=== PATIENT | female | born 1970 | race Two or more races ===

== ENCOUNTER 2021-07-16 13:50 | Observation (INO) | payer SELFPAY ==
[~2021-07-16] VITALS: Ht 154.9 cm; Wt 81.8 kg
--- NOTE | 2021-07-16 14:15 | PHYS DOC ---
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 States she rates the pain a 5 out of 10 at this time. She states the pain has gotten slightly better. Patient denies abdominal pain, nausea, vomiting, fever, cough, back pain, syncope, dizziness Review of Systems: Review of Systems: Constitutional: Denies fever or chills. [] Eyes: Denies change in visual acuity. [] HENT: Denies nasal congestion or sore throat. [] Respiratory: Denies cough or shortness of breath. [] Cardiovascular: + chest pain or denies edema. + Palpitations [] GI: Denies abdominal pain, nausea, vomiting, bloody stools or diarrhea. [] : Denies dysuria. [] Musculoskeletal: Denies back pain or joint pain. + Left arm pain [] Integument: Denies rash. [] Neurologic: Denies headache, focal weakness or sensory changes. +Diaphoresis [] Endocrine: Denies polyuria or polydipsia. [] Lymphatic: Denies swollen glands. [] Psychiatric: Denies depression or anxiety. [] Heart Score: C/O Chest Pain: Yes HEART Score for Chest Pain: HEART Score for Chest Pain Response (Comments) Value History Slighlty/Non-Suspicious 0 ECG Normal 0 Age >45 - < 65 1 Risk Factors 1 or 2 Risk Factors 1 Troponin < Normal Limit 0 Total 2 Risk Factors: Risk Factors: DM, Current or recent (<one month) smoker, HTN, HLP, family history of CAD, obesity. Risk Scores: Score 0 - 3: 2.5% MACE over next 6 weeks - Discharge Home Score 4 - 6: 20.3% MACE over next 6 weeks - Admit for Clinical Observation Score 7 - 10: 72.7% MACE over next 6 weeks - Early Invasive Strategies Physical Exam: PE: Constitutional: Well developed, well nourished, no acute distress, non-toxic appearance. [] HENT: Normocephalic, atraumatic, bilateral external ears normal, oropharynx moist, no oral exudates, nose normal. [] Eyes: PERRLA, EOMI, conjunctiva normal, no discharge. [] Neck: Normal range of motion, no tenderness, supple, no stridor. [] Cardiovascular:Heart rate regular rhythm, no murmur [] Lungs & Thorax: Bilateral breath sounds clear to auscultation [] Abdomen: Bowel sounds normal, soft, no tenderness, no masses, no pulsatile masses. [] Skin: Warm, dry, no erythema, no rash. [] Back: No tenderness, no CVA tenderness. [] Extremities: No tenderness, no cyanosis, no clubbing, ROM intact, no edema. [] Neurologic: Alert and oriented X 3, normal motor function, normal sensory function, no focal deficits noted. [] Psychologic: Affect normal, judgement normal, mood normal. [] Normal physical exam EKG: EK and read by Dr. Irvin as a sinus rhythm and no STEMI Radiology/Procedures: Radiology/Procedures: [] Impression: [facility] [address] [place], [place] [id number] IMAGING REPORT Signed PATIENT: BRISA MOTA ACCOUNT: [id number] : 1970 LOCATION: ER AGE: 50 SEX: F EXAM STATUS: REG ER ORD. PHYSICIAN: SHANNAN COLEY APRN REASON: chest pain PROCEDURE: PORTABLE CHEST 1V EXAM: Chest, single view. HISTORY: Chest pain. COMPARISON: None. FINDINGS: A frontal view of the chest is obtained. There is no infiltrate, pleural effusion or pneumothorax. The heart is normal in size. IMPRESSION: No acute pulmonary finding. Electronically signed by: Rosmery Freeman MD (07/16/2021 2:37 PM) [id number] DICTATED and SIGNED BY: ROSMERY FREEMAN MD DATE: 07/16/21 1437 Course & Med Decision Making: Course & Med Decision Making Pertinent Labs and Imaging studies reviewed. (See chart for details) See HPI. Alert and oriented x4. Ambulatory steady gait. Speaks in full clear sentences. Chest pain cannot be reproduced. Lungs are clear to all stational lobes. No extremity swelling. Skin pink warm and dry. Radial pulses strong present. Cap refill less than 2 seconds. EKG shows a sinus rhythm and no STEMI. Patient states that she is going through 2 pads an hour. Patient's hemoglobin is low at 7.2. When looking back she has always been sli ghtly anemic but not this anemic. She is currently on her menstrual cycle. She states she has very heavy menstrual cycle. She states that this is her second day of her current menstrual cycle. Potassium is low at 3.1 and I have given her 40MEQ potassium by mouth. Patient admitted to hospitalist and Dr. Mansfield will be consulted. [] Bebo Disclaimer: Dragon Disclaimer: This electronic medical record was generated, in whole or in part, using a voice recognition dictation system. Departure Departure Impression: Primary Impression: Dysfunctional uterine bleeding Additional Impressions: Low hemoglobin Urinary tract infection Chest pain Disposition: ADMITTED INPATIENT Admitting Physician: BELKYS Condition: STABLE Referrals: NON,STAFF (PCP) SHANNAN COLEY APRN Jul 16, 2021 14:15
[2021-07-16 14:28] LABS: BASO # 0.1 x10^3/uL (0.0-0.2); BASO % 1 % (0-3); EOS # 0.2 x10^3/uL (0.0-0.7); EOS % 3 % (0-3); HEMATOCRIT 24.9 % (36.0-47.0); HEMOGLOBIN 7.2 g/dL (12.0-15.5); LYMPH # 1.9 x10^3/uL (1.0-4.8); LYMPH % 29 % (24-48); MEAN CORPUSCULAR HEMOGLOBIN 18 pg (25-35); MEAN CORPUSCULAR HGB CONC 29 g/dL (31-37); MEAN CORPUSCULAR VOLUME 63 fL (79-100); MONO # 0.5 x10^3/uL (0.0-1.1); MONO % 8 % (0-9); NEUT # 3.8 x10^3/uL (1.8-7.7); NEUT % 59 % (31-73); PLATELET COUNT 338 x10^3/uL (140-400); RED BLOOD COUNT 3.95 x10^6/uL (3.50-5.40); RED CELL DISTRIBUTION WIDTH 18.6 % (11.5-14.5); WHITE BLOOD COUNT 6.4 x10^3/uL (4.0-11.0)
[2021-07-16] MEDS ORDERED: ASPIRIN 325 MG TABLET PO ONE (14:30)
[2021-07-16 14:38] LABS: CALCIUM 8.4 mg/dL (8.5-10.1); CREATININE 0.6 mg/dL (0.6-1.0); GFR 105.8; POTASSIUM 3.1 mmol/L (3.5-5.1)
--- NOTE | 2021-07-16 14:40 | RAD ---
EXAM: Chest, single view. HISTORY: Chest pain. COMPARISON: None. FINDINGS: A frontal view of the chest is obtained. There is no infiltrate, pleural effusion or pneumo thorax. The heart is normal in size. IMPRESSION: No acute pulmonary finding. Electronically signed by: Rosmery Zimmerman MD (07/16/2021 2:37 PM) [id number]
[2021-07-16 14:45] LABS: ALBUMIN 3.6 g/dL (3.4-5.0); ALBUMIN/GLOBULIN RATIO 0.7 (1.0-1.7); TOTAL BILIRUBIN 0.2 mg/dL (0.2-1.0); TOTAL PROTEIN 9.1 g/dL (6.4-8.2)
[2021-07-16 14:46] LABS: BILIRUBIN,URINE NEGATIVE (NEG); CLARITY,URINE CLEAR; COLOR,URINE STRAW; NITRITE,URINE POSITIVE (NEG); PH,URINE 5.5 (<5.0-8.0); PROTEIN,URINE NEGATIVE (NEG-TRACE); UROBILINOGEN,URINE 0.2 mg/dL (0.2 mg/dL)
[2021-07-16 14:47] LABS: BACTERIA,URINE MANY /HPF (0-FEW)
[2021-07-16] MEDS ORDERED: POTASSIUM CHLORIDE 20 MEQ TABLET.ER. PO ONE (15:00)
[2021-07-16 15:24] LABS: PROTHROMBIN TIME PATIENT 13.1 SEC (11.7-14.0)
[2021-07-16] MEDS ORDERED: cefTRIAXone IV Push 1 GM VIAL. IVP ONE (15:30)
--- NOTE | 2021-07-16 15:51 | RAD ---
EXAM: Pelvic sonogram. HISTORY: Heavy vaginal bleeding. TECHNIQUE: Transabdominal and transvaginal sonographic imaging of the pelvis was performed. COMPARISON: None. FINDINGS: The uterus measures 7.8 x 5.4 x 4.8 cm. The endometrial stripe measures 1. There is fluid w ithin the endometrial cavity. There is a solid-appearing mass projecting into the central fluid measu ring 7 mm. The right ovary is obscured due to bowel gas. No right adnexal mass or cyst is seen. The l eft ovary is normal in size and demonstrate normal blood flow. There is no pelvic free fluid. There i s a nabothian cyst within the cervix. IMPRESSION: 1. The endometrial cavity, likely due to blood products given history of reported heavy vaginal bleed ing. There is a 7 mm solid echogenic lesion projecting into the endometrial fluid, the appearance of which favors a polyp. This can be further assessed with hysteroscopy. 2. Obscured right ovary and normal left ovary. Electronically signed by: Rosmery Zimmerman MD (07/16/2021 3:49 PM) [id number]
--- NOTE | 2021-07-16 16:14 | EKG ---
[facility] [address] [place] [address] Test Date: 2021-07-16 Test Time: 14:43:33 Pat Name: BRISA MOTA Department: Room: Gender: F Header Operator: : 1970 Requested By: SHANNAN COLEY Order Number: [id number] Reading MD: Sidney Henry Measurements Intervals [place] Rate: 73 P: 27 [place]: 176 QRS: 25 QRSD: 88 T: 10 QT: 384 QTc: 427 Interpretive Statements SINUS RHYTHM NON SPECIFIC T WAVE CHANGES RI6.02 Compared to ECG 07/16/2021 14:02:46 No significant changes Electronically Signed On 07-19-2021 15:21:14 CDT by Sidney Henry
--- NOTE | 2021-07-16 16:14 | EKG ---
[facility] [address] [place] [address] Test Date: 2021-07-16 Test Time: 14:02:46 Pat Name: BRISA MOTA Department: Room: Gender: F Tech Writer: : 1970 Requested By: SHANNAN COLEY Order Number: [id number] Reading MD: Measurements Intervals [place] Rate: 75 P: 24 CT: 172 QRS: 19 QRSD: 86 T: 9 QT: 378 QTc: 425 Interpretive Statements SINUS RHYTHM NORMAL ECG RI6.02 No previous ECG available for comparison
[2021-07-16] MEDS ORDERED: cefTRIAXone IV Push 1 GM VIAL. IVP SCH (17:00)
--- NOTE | 2021-07-16 17:17 | HP ---
DATE OF SERVICE: 07/16/2021 ADMIT DATE: 07/16/2021 CHIEF COMPLAINT: Vaginal bleeding and chest pain. HISTORY OF PRESENT ILLNESS: The patient is a pleasant 50-year-old female who presents to the ER with the above chief complaints. Basically, she has been having a lot of dysfunctional uterine bleeding for quite some time. Now, she has developed chest pain. Her hemoglobin is down to 7.2. I discussed the case with ER physician. We are going to admit the patient and consult TRANSPORTATION SUPERINTENDENT and transfuse the patient. PAST MEDICAL HISTORY: Dysfunctional uterine bleeding, chronic anemia. ALLERGIES: None. FAMILY HISTORY: Diabetes. 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 She does not drink, smoke or take drugs. MEDICATIONS: Reviewed, please refer to the MRAD. REVIEW OF SYSTEMS: GENERAL: No history of weight change, weakness or fevers. SKIN: No bruising, hair changes or rashes. EYES: No blurred, double or loss of vision. NOSE AND THROAT: No history of nosebleeds, hoarseness or sore throat. HEART: She complains of chest pain. LUNGS: Denies cough, hemoptysis, wheezing or shortness of breath. GASTROINTESTINAL: Denies changes in appetite, nausea, vomiting, diarrhea or constipation. GENITOURINARY: No history of frequency, urgency, hesitancy or nocturia. NEUROLOGIC: Denies history of numbness, tingling, tremor or weakness. PSYCHIATRIC: No history of panic, anxiety or depression. ENDOCRINE: No history of heat or cold intolerance, polyuria or polydipsia. EXTREMITIES: Denies muscle weakness, joint pain, pain on walking or stiffness. PHYSICAL EXAMINATION: VITALS: Within normal limits and are stable. GENERAL: No apparent distress. Alert and oriented. HEENT: Normal cephalic atraumatic, external auditory canals are patent. EYES: Extraocular muscles are intact, pupils are equally round and reactive to light and accommodation. MUSCULOSKELETAL: Well developed, well nourished, good range of motion. ENDOCRINE: No thyromegaly was palpated, LYMPHATICS: No cervical chain or axillary nodes were noted. HEMATOPOIETIC: No bruising. NECK: Supple, no JVD, no thyromegaly was noted. LUNGS: Clear to auscultation in all lung francois without rhonchi or wheezing. HEART: RRR, S1, S2 present. Peripheral pulses intact, no obvious murmurs were noted. ABDOMEN: Soft, nontender. Positive bowel sounds no organomegaly, normal bowel sounds. EXTREMITIES: Without any cyanosis, clubbing, or edema. Pedal pulses intact, Homans sign is negative. NEUROLOGIC: Normal speech, normal tone. A and O x 3, moves all extremities, no obvious focal deficits. PSYCHIATRIC: Normal affect, normal mood. Stable. SKIN: No ulcerations or rashes, good skin turgor, no jaundice. VASCULAR: Good capillary refill, neurovascular bundle appears to be intact. GENITOURINARY: She complains of dysfunctional uterine bleeding. LABORATORY DATA: Hemoglobin 7.2. INR is 1. Electrolytes are normal other than a potassium of 3.1, total iron binding capacity 472. Iron level 10. ASSESSMENT AND PLAN: Dysfunctional uterine bleeding with severe anemia and secondary chest pain, hypokalemia and iron deficiency. The patient will be admitted. We will replace her potassium. Give her iron supplementation. Consult TRANSPORTATION SUPERINTENDENT and transfuse 2 units of packed red blood cells. Home meds. Deep venous thrombosis prophylaxis. Full code. She does have positive nitrites and a few white cells in her urine. We will go ahead and give her some empiric IV antibiotics. MACIEJ/MARGOT DR: MACIEJ/chayo TID: [id number]
[2021-07-16 19:04] VITALS: BP 132/65
[2021-07-16 21:30] LABS: ANISOCYTOSIS SLIGHT; HYPOCHROMIA MARKED; MICROCYTOSIS MARKED; OVALOCYTES FEW; PLT ESTIMATE ADEQUATE (ADEQUATE)
[2021-07-16 21:48] VITALS: BP 111/56
--- NOTE | 2021-07-16 22:00 | NUR ---
The patient, BRISA MOTA, 50 y/o, F admitted by [place] MONTEJO III, DO, was given written information regarding hospital policies, unit procedures and contact persons. valuables were checked and documented. pt a/ox4, assessment and history completed and documented. pt oriented to unit and poc, pt verbalized understanding. will cont to monitor pt status and safety. p
[2021-07-16 22:13] VITALS: BP 116/59
[2021-07-16 22:30] VITALS: BP 114/62
[2021-07-17] VITALS (9 sets, daily range): BP systolic 111–130; BP diastolic 56–73
[2021-07-17 04:54] LABS: HEMOGLOBIN 9.2 g/dL (12.0-15.5); RED BLOOD COUNT 4.45 x10^6/uL (3.50-5.40); RED CELL DISTRIBUTION WIDTH 22.9 % (11.5-14.5); WHITE BLOOD COUNT 6.3 x10^3/uL (4.0-11.0)
[2021-07-17] MEDS ORDERED: FLU VACC QUAD 21-22 (6MOS+) PF 0.5 ML SYRINGE. VAX IM ONE (09:00)
[2021-07-17] MEDS ORDERED: AMOX1TAB10 PO (10:04)
[2021-07-17] MEDS ORDERED: FERR240T11 PO (10:04)
[2021-07-17] MEDS ORDERED: OXYC-325 PO (10:32)
[2021-07-17] MEDS ORDERED: CYCL10TA19 PO (10:32)
--- NOTE | 2021-07-17 11:04 | NUR ---
SS following for discharge planning. SS reviewed pt chart and discussed with pt RN. Pt is from home with spouse and is currently on room air. Discharge order on the chart for home with self care.
--- NOTE | 2021-07-17 11:20 | DS ---
DATE OF DISCHARGE: 07/17/2021 ADMITTING DIAGNOSES: 1. Severe anemia secondary to dysfunctional uterine bleeding. 2. Urinary tract infection. DISCHARGE DIAGNOSES: 1. Resolving severe anemia, status post transfusion, x 2 units. 2. Dysfunctional uterine bleeding. 3. Resolving urinary tract infection. 4. Iron deficiency. HOSPITAL COURSE: The patient is a pleasant, middle-aged female who has dysfunctional uterine bleeding. She presented with a hemoglobin of 7.2. We admitted her, I consulted CASINO ATTENDANT. We placed her on IV antibiotics for her UTI as well. Today, I saw her and examined her. She is doing great. Her hemoglobin is up to 9.2. She wants to go home. If okay with CASINO ATTENDANT, we plan to discharge. DISPOSITION: Home. ACTIVITY: As tolerated. DIET: Low sodium. MEDICATIONS: Please see the MRAD. Augmentin 500 p.o. b.i.d. and iron tablets 240 mg a day. Total time 36 minutes. MACIEJ/JERAMIE DR: Guillaume TID: [id number]
--- NOTE | 2021-07-17 13:46 | NUR ---
Discharge Note: NELLY MOTA [facility] Discharge instructions and discharge home medications reviewed with Patient and a copy given. All questions have been answered and understanding verbalized.
--- NOTE | 2021-07-17 16:17 | PDOC2 ---
CONSULT Date of Consult Date of Consult DATE: 07/17/21 TIME: 16:16 Reason for Consult Reason for Consult: Heavy VB History of Present Illness Reason for Visit: 50y who presented to the hospital with chest pain. The pt states that at work she got lightheaded and couldnt breathe. She began to have pain on the left side of her neck radiating to her chest. When she presented to the ER, she was found to have Hgb of 7.2. She was admitted for a transfusion. The pt states her period have always been about the same. She does not feel that they are exceptionally heavy. Although she does report that they have been heavier since her BTL in 1992. She has never required a transfusion for her periods until this hospitalization. She does report a lot discomfort with her periods. 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 Since her had a period Apr and the next was this current one. SH: no tob, no EtOH FH: DM, kidney dz, leukemia Current Problem List Problem List Problems Medical Problems: (1) Chest pain Status: Acute (2) Dysfunctional uterine bleeding Status: Acute (3) Low hemoglobin Status: Acute (4) Urinary tract infection Status: Acute Current Medications Current Medications Current Medications Aspirin (Deuce Aspirin) 325 mg 1X ONCE PO Last administered on 07/16/21at 14:19; Start 07/16/21 at 14:30; Stop 07/16/21 at 14:31; Status DC Potassium Chloride (Klor-Con) 40 meq 1X ONCE PO Last administered on 07/16/21at 14:57; Start 07/16/21 at 15:00; Stop 07/16/21 at 15:01; Status DC Ceftriaxone Sodium (Rocephin) 1 gm 1X ONCE IVP Last administered on 07/16/21at 15:03; Start 07/16/21 at 15:30; Stop 07/16/21 at 15:31; Status DC Ceftriaxone Sodium (Rocephin) 1 gm Q24H IVP Last administered on 07/16/21at 17:13; Start 07/16/21 at 17:00; Stop 07/17/21 at 13:48; Status DC Influenza Virus Vaccine Quadrival (Flulaval Quad Syringe) 0.5 ml ONCE ONCE VAX IM ; Start 07/17/21 at 09:00; Stop 07/17/21 at 09:02; Status DC Active Scripts Active Percocet 5-325 mg Tablet (Oxycodone HCl/Acetaminophen) 1 Each Tablet 1 Tab PO PRN TID PRN MDD 3 Tablet(s) 5 Days Cyclobenzaprine Hcl 10 Mg Tablet 1 Tab PO TID 30 Days Iron (Ferrous Gluconate) 240 Mg Tablet 1 Tab PO DAILY 30 Days Amox Tr-K Clv 500-125 Mg Tab (Amoxicillin/Potassium Clav) 1 Each Tablet 1 Tab PO BID Allergies Allergies: Coded Allergies: Sulfa (Sulfonamide Antibiotics) (Verified Allergy, Intermediate, 07/16/21) Physical Exam General: Alert, Oriented X3, Cooperative, No acute distress HEENT: PERRLA, Mucous membr. moist/pink Lungs: Clear to auscultation, Normal air movement Heart: Regular rate, Normal S1, Normal S2, No murmurs Abdomen: Normal bowel sounds, Soft, No tenderness, No hepatosplenomegaly, No masses Extremities: No clubbing, No cyanosis, No edema, Normal pulses, No tenderness/swelling Skin: No rashes, No breakdown Neuro: Normal gait, Normal speech, Normal tone, Sensation intact, Reflexes 2+ Psych/Mental Status: Mental status NL, Mood NL Vitals VITALS Vital Signs Date Time Temp Pulse Resp B/P (MAP) Pulse Ox O2 Delivery O2 Flow Rate FiO2 07/17/21 11:00 97.8 72 20 119/56 (77) 96 Room Air 97.8 Labs Labs Laboratory Tests Test 07/16/21 14:10 07/16/21 14:24 07/16/21 14:27 07/16/21 16:45 White Blood Count 6.4 x10^3/uL (4.0-11.0) Red Blood Count 3.95 x10^6/uL (3.50-5.40) Hemoglobin 7.2 g/dL (12.0-15.5) Hematocrit 24.9 % (36.0-47.0) Mean Corpuscular Volume 63 fL (79-100) Mean Corpuscular Hemoglobin 18 pg (25-35) Mean Corpuscular Hemoglobin Concent 29 g/dL (31-37) Red Cell Distribution Width 18.6 % (11.5-14.5) Platelet Count 338 x10^3/uL (140-400) Neutrophils (%) (Auto) 59 % (31-73) Lymphocytes (%) (Auto) 29 % (24-48) Monocytes (%) (Auto) 8 % (0-9) Eosinophils (%) (Auto) 3 % (0-3) Basophils (%) (Auto) 1 % (0-3) Neutrophils # (Auto) 3.8 x10^3/uL (1.8-7.7) Lymphocytes # (Auto) 1.9 x10^3/uL (1.0-4.8) Monocytes # (Auto) 0.5 x10^3/uL (0.0-1.1) Eosinophils # (Auto) 0.2 x10^3/uL (0.0-0.7) Basophils # (Auto) 0.1 x10^3/uL (0.0-0.2) Platelet Estimate Adequate (ADEQUATE) Hypochromasia Marked Basophilic Stippling Present Anisocytosis Slight Microcytosis Marked Ovalocytes Few Prothrombin Time 13.1 SEC (11.7-14.0) Prothromb Time International Ratio 1.0 (0.8-1.1) Activated Partial Thromboplast Time 30 SEC (24-38) Sodium Level 139 mmol/L (136-145) Potassium Level 3.1 mmol/L (3.5-5.1) Chloride Level 105 mmol/L (98-107) Carbon Dioxide Level 24 mmol/L (21-32) Anion Gap 10 (6-14) Blood Urea Nitrogen 7 mg/dL (7-20) Creatinine 0.6 mg/dL (0.6-1.0) Estimated GFR (Cockcroft-Gault) 105.8 BUN/Creatinine Ratio 12 (6-20) Glucose Level 142 mg/dL (70-99) Calcium Level 8.4 mg/dL (8.5-10.1) Magnesium Level 2.0 mg/dL (1.8-2.4) Iron Level 10 ug/dL (50-170) Total Iron Binding Capacity 472 ug/dL (250-450) Iron Saturation 2 % (15-34) Ferritin 3 ng/mL (8-252) Total Bilirubin 0.2 mg/dL (0.2-1.0) Aspartate Amino Transf (AST/SGOT) 27 U/L (15-37) Alanine Aminotransferase (ALT/SGPT) 37 U/L (14-59) Alkaline Phosphatase 78 U/L (46-116) Troponin I High Sensitivity < 4 ng/L (4-50) 5 ng/L (4-50) VQ-Uwt-D-Type Natriuretic Peptide 45 pg/mL (0-124) Total Protein 9.1 g/dL (6.4-8.2) Albumin 3.6 g/dL (3.4-5.0) Albumin/Globulin Ratio 0.7 (1.0-1.7) Lipase 132 U/L (73-393) Urine Collection Type Unknown Urine Color Straw Urine Clarity Clear Urine pH 5.5 (<5.0-8.0) Urine Specific [place] 1.015 (1.000-1.030) Urine Protein Negative mg/dL (NEG-TRACE) Urine Glucose (UA) >=1000 mg/dL (NEG) Urine Ketones (Stick) Negative mg/dL (NEG) Urine Blood Small (NEG) Urine Nitrite Positive (NEG) Urine Bilirubin Negative (NEG) Urine Urobilinogen Dipstick 0.2 mg/dL (0.2 mg/dL) Urine Leukocyte Esterase Negative (NEG) Urine RBC 3-5 /HPF (0-2) Urine WBC 5-10 /HPF (0-4) Urine Squamous Epithelial Cells Few /LPF Urine Bacteria Many /HPF (0-FEW) Bedside Urine HCG, Qualitative Hcg negative (Negative) Test 07/16/21 17:25 07/17/21 04:00 07/17/21 07:44 07/17/21 11:05 Troponin I High Sensitivity 4 ng/L (4-50) White Blood Count 6.3 x10^3/uL (4.0-11.0) Red Blood Count 4.45 x10^6/uL (3.50-5.40) Hemoglobin 9.2 g/dL (12.0-15.5) Hematocrit 30.0 % (36.0-47.0) Mean Corpuscular Volume 67 fL (79-100) Mean Corpuscular Hemoglobin 21 pg (25-35) Mean Corpuscular Hemoglobin Concent 31 g/dL (31-37) Red Cell Distribution Width 22.9 % (11.5-14.5) Platelet Count 310 x10^3/uL (140-400) Glucose (Fingerstick) 112 mg/dL (70-99) 122 mg/dL (70-99) Laboratory Tests Test 07/16/21 16:45 07/16/21 17:25 07/17/21 04:00 07/17/21 07:44 Troponin I High Sensitivity 5 ng/L (4-50) 4 ng/L (4-50) White Blood Count 6.3 x10^3/uL (4.0-11.0) Red Blood Count 4.45 x10^6/uL (3.50-5.40) Hemoglobin 9.2 g/dL (12.0-15.5) Hematocrit 30.0 % (36.0-47.0) Mean Corpuscular Volume 67 fL (79-100) Mean Corpuscular Hemoglobin 21 pg (25-35) Mean Corpuscular Hemoglobin Concent 31 g/dL (31-37) Red Cell Distribution Width 22.9 % (11.5-14.5) Platelet Count 310 x10^3/uL (140-400) Glucose (Fingerstick) 112 mg/dL (70-99) Test 07/17/21 11:05 Glucose (Fingerstick) 122 mg/dL (70-99) Assessment/Plan Assessment/Plan Assessment: 50y admitted for transfusion Recommendation: 1.) Anemia Hgb 7.2 -> 2U pRBC -> 9.2. Likely 2/2 menstrual cycle. 2.) Menorrhagia discussed tx options with the pt. Discussed start PO progestone to help lightener her cycles. She will f/u as outpt. 3.) Sulfa allergy 4.) BARBARA KELLY MD Jul 17, 2021 16:17
[2021-07-17] MEDS ORDERED: [UNRECOGNIZED DRUG - CODE] PO (16:19)
== END 2021-07-17 13:00 | disposition still patient (30) ==
LOC: ER 13:50 → 6 SOUTH 16:01 → INTOOBSV 16:01
PROVIDERS: ADMIT Internal Medicine; ATTEND Internal Medicine
DX: D50.0 Iron deficiency anemia secondary to blood loss (chronic) (principal); N93.8 Other specified abnormal uterine and vaginal bleeding; R07.89 Other chest pain; E11.9 Type 2 diabetes mellitus without complications; E87.6 Hypokalemia; N92.0 Excessive and frequent menstruation with regular cycle; N39.0 Urinary tract infection, site not specified; R61 Generalized hyperhidrosis; D64.9 Anemia, unspecified; M79.602 Pain in left arm; Z87.442 Personal history of urinary calculi; Z79.899 Other long term (current) drug therapy; Z98.890 Other specified postprocedural states; Z79.82 Long term (current) use of aspirin
CPT/HCPCS: 36415; 36430; 71045; 76830; 76856; 80053; 81001; 81025; 82728; 82962; 83540; 83550; 83690; 83735; 83880; 84484; 85025; 85027; 85610; 85730; 86850; 86900; 86901; 86920; 87077; 87086; 87186; 93005; 96374; 96376; 99285; G0378; J0696; P9016; G0379

== ENCOUNTER 2021-08-17 17:53 | Emergency (ER) | payer SELFPAY ==
[~2021-08-17] VITALS: Ht 152.4 cm; Wt 77.2 kg
[~2021-08-17 17:53] MED LIST: AMOX1TAB10 PO; CYCL10TA19 PO; FERR240T11 PO; OXYC-325 PO; [UNRECOGNIZED DRUG - CODE] PO
[2021-08-17 18:05] VITALS: BP 185/83
[2021-08-17] MEDS ORDERED: MORPHINE SULFATE 4 MG/ML INJ. IV/SQ PRN (18:30)
[2021-08-17] MEDS ORDERED: IOHEXOL 300 MG/ML 100ML VIAL. IV ONE (18:30)
[2021-08-17] MEDS ORDERED: ONDANSETRON PF 4 MG/2 ML VIAL. IVP ONE (18:30)
[2021-08-17] MEDS ORDERED: CONTRAST GIVEN. MC PRN (18:45)
--- NOTE | 2021-08-17 19:20 | PHYS DOC ---
Past Medical History Additional Past Medical Histor: kidney stones Past Surgical History: Cholecystectomy Smoking Status: Never Smoker Alcohol Use: None General Adult EDM: Chief Complaint: ABDOMINAL PAIN HPI: HPI: Patient is a 50 year old female with a history of cholecystectomy presenting to the ED today complaining of 8 out of 10 generalized abdominal pain with nausea, symptoms began today. Patient denies any vomiting. Patient describes the pain as sharp and constant worse this evening. Denies anything specifically relieving the pain, denies anything exacerbating the pain. Fashion Illustrator line for Khmer used Review of Systems: Review of Systems: Constitutional: Denies fever or chills. [] Eyes: Denies change in visual acuity. [] HENT: Denies nasal congestion or sore throat. [] Respiratory: Denies cough or shortness of breath. [] Cardiovascular: Denies chest pain or edema. [] GI: Reports generalized abdominal pain with nausea, denies vomiting, bloody stools or diarrhea. [] : Denies dysuria. [] Musculoskeletal: Denies back pain or joint pain. [] Integument: Denies rash. [] Neurologic: Denies headache, focal weakness or sensory changes. [] [] Psychiatric: Denies depression or anxiety. [] Heart Score: C/O Chest Pain: N/A Risk Factors: Risk Factors: DM, Current or recent (<one month) smoker, HTN, HLP, family history of CAD, obesity. Risk Scores: Score 0 - 3: 2.5% MACE over next 6 weeks - Discharge Home Score 4 - 6: 20.3% MACE over next 6 weeks - Admit for Clinical Observation Score 7 - 10: 72.7% MACE over next 6 weeks - Early Invasive Strategies Current Medications: Current Medications Medications (Trade) Dose Ordered Sig/Dillon Start Time Stop Time Status Last Admin Dose Admin Info (CONTRAST GIVEN -- Rx MONITORING) 1 each PRN DAILY PRN 08/17/21 18:45 08/19/21 18:44 Iohexol (Omnipaque 300 Mg/ml) 75 ml 1X ONCE 08/17/21 18:30 08/17/21 18:34 DC Morphine Sulfate (Morphine Sulfate) 4 mg PRN Q15MIN PRN 08/17/21 18:30 08/18/21 18:29 Ondansetron HCl (Zofran) 4 mg 1X ONCE 08/17/21 18:30 08/17/21 18:31 DC Allergies: Allergies: Allergies Coded Allergies Type Severity Reaction Last Updated Verified Sulfa (Sulfonamide Antibiotics) Allergy Intermediate 07/16/21 Yes I S O L A T I O N *CONTACT* Allergy Unknown 07/20/21 Yes Physical Exam: PE: Constitutional: Well developed, well nourished, no acute distress, non-toxic appearance. [] HENT: Normocephalic, atraumatic, bilateral external ears normal, oropharynx moist, no oral exudates, nose normal. [] Eyes: PERRLA, EOMI, conjunctiva normal, no discharge. [] Neck: Normal range of motion, no tenderness, supple, no stridor. [] Cardiovascular:Heart rate regular rhythm, no murmur [] Lungs & Thorax: Bilateral breath sounds clear to auscultation [] Abdomen: Bowel sounds normal, soft, diffuse tenderness throughout the abdomen, no significant point tenderness in the right upper quadrant, right lower quadrant, no masses, no pulsatile masses. [] Skin: Warm, dry, no erythema, no rash. [] Back: No tenderness, no CVA tenderness. [] Extremities: No tenderness, no cyanosis, no clubbing, ROM intact, no edema. [] Neurologic: Alert and oriented X 3, normal motor function, normal sensory function, no focal deficits noted. [] Psychologic: Patient is restless, tossing around, crying Current Patient Data: Vital Signs: Vital Signs Date Time Temp Pulse Resp B/P (MAP) Pulse Ox O2 Delivery O2 Flow Rate FiO2 08/17/21 18:05 98.3 118 24 185/83 (117) 100 Room Air 98.3 EKG: EKG: [] Radiology/Procedures: Radiology/Procedures: []PROCEDURE: CT ABDOMEN PELVIS WO CONTRAST CT ABDOMEN+PELVIS WO INDICATION: LOW ABDOMEN, FLANK PAIN, MID ABD PAIN. H/O STONES EXAM: Noncontrast CT of the abdomen and pelvis. Coronal and sagittal reformatted images were performed. PQRS compliance statement: One or more of the following individualized dose reduction techniques were utilized for this examination: 1. Automated exposure control 2. Adjustment of the mA and/or kV according to patient size 3. Use of iterative reconstruction technique COMPARISON: 01/26/2015 FINDINGS: No free air, free fluid, or fluid collection. Lower chest: The visualized lower lungs are aerated. No pleural or pericardial effusion. ABDOMEN: Liver: The noncontrast liver is homogeneous in attenuation. Gallbladder and biliary: Cholecystectomy. Normal caliber bile ducts. Spleen: Normal spleen. Pancreas: The noncontrast pancreas is homogeneous in attenuation without peripancreatic inflammatory changes. Adrenal glands: Normal adrenal glands. Kidneys and ureters: Bilateral nonobstructive renal calculi. No hydronephrosis. Right renal cortical defects, likely sequela of prior infection or old infarcts. GI tract: The stomach is decompressed and poorly evaluated. Normal caliber small bowel and colon. Normal appendix. Vascular structures: Normal caliber abdominal aorta. Lymph nodes: No lymphadenopathy in the abdomen or pelvis. PELVIS: Genitourinary system: Urinary bladder is decompressed. Uterus is present. SKELETAL STRUCTURES AND SOFT TISSUES: No fracture or destructive lesion in the visualized skeleton. IMPRESSION: Bilateral nonobstructive renal calculi. No hydronephrosis. Electronically signed by: Edward Wagner MD (08/17/2021 8:10 PM) [facility] DICTATED and SIGNED BY: EDWARD WAGNER MD DATE: 08/17/212000 Course & Med Decision Making: Course & Med Decision Making Pertinent Labs and Imaging studies reviewed. (See chart for details) This is a 50-year-old female patient presented to the ED today with generalized abdominal pain, symptoms of been going on since this morning. Also complaining of nausea Vitals on arrival to the ED temperature 98.3, heart rate 118, respiration 24, blood pressure 185/83, O2 sats 100% on room air. Patient is restless, tossing around. Crying. CBC with a WBC of 12.7, hemoglobin 10.5 with hematocrit of 32.3, history of chronic anemia. CMP with potassium 3.1, patient was given oral potassium replacement. Glucose 115. UA negative for infection. CT of the abdomen pelvis noted for bilateral nonobstructive renal calculi. No hydronephrosis Patient's pain is well controlled in the ED. Provided rn occupational health for follow- up. Follow-up with PCP as well. Provided return precautions. Bebo Disclaimer: Bebo Disclaimer: This electronic medical record was generated, in whole or in part, using a voice recognition dictation system. Departure Departure Impression: Primary Impression: Generalized abdominal pain Additional Impression: Nausea Disposition: 01 HOME / SELF CARE / HOMELESS Condition: STABLE Referrals: NO PCP (PCP) STEPHEN BYERS MD follow upo in one week Patient Instructions: Abdominal Pain (Nonspecific) Additional Instructions: You were evaluated in the emergency room for abdominal pain. We did a CT of abdomen and pelvis which was noted for kidney stones in your kidneys, we did lab work as well as urine-no acute findings were noted. Please follow-up with your primary care doctor as well as the urologist provided Scripts Ondansetron (ONDANSETRON ODT) 4 Mg Tab.rapdis 1 TAB PO PRN Q6-8HRS, #16 TAB Prov: BARB TREVÑIO FORENSIC SERGEANT 08/17/21 Hydrocodone Bit/Acetaminophen (HYDROCODONE-APAP 5-325 ) 1 Tab Tablet 1 TAB PO PRN Q6HRS PRN for PAIN, #10 TAB 0 Refills Prov: BARB TREVIÑO APRN 08/17/21 BARB TREVIÑO APRN Aug 17, 2021 19:20
[2021-08-17 19:50] LABS: BASO # 0.1 x10^3/uL (0.0-0.2); BASO % 1 % (0-3); EOS # 0.1 x10^3/uL (0.0-0.7); EOS % 1 % (0-3); HEMATOCRIT 32.3 % (36.0-47.0); HEMOGLOBIN 10.5 g/dL (12.0-15.5); LYMPH # 1.1 x10^3/uL (1.0-4.8); LYMPH % 9 % (24-48); MEAN CORPUSCULAR HEMOGLOBIN 22 pg (25-35); MEAN CORPUSCULAR HGB CONC 32 g/dL (31-37); MEAN CORPUSCULAR VOLUME 68 fL (79-100); MONO # 0.9 x10^3/uL (0.0-1.1); MONO % 7 % (0-9); NEUT # 10.7 x10^3/uL (1.8-7.7); NEUT % 84 % (31-73); PLATELET COUNT 218 x10^3/uL (140-400); RED BLOOD COUNT 4.78 x10^6/uL (3.50-5.40); WHITE BLOOD COUNT 12.7 x10^3/uL (4.0-11.0)
[2021-08-17 20:01] LABS: CALCIUM 8.8 mg/dL (8.5-10.1); CREATININE 0.6 mg/dL (0.6-1.0); GFR 105.8; POTASSIUM 3.1 mmol/L (3.5-5.1)
[2021-08-17 20:08] LABS: ALBUMIN/GLOBULIN RATIO 0.8 (1.0-1.7); MAGNESIUM 1.7 mg/dL (1.8-2.4); TOTAL BILIRUBIN 0.5 mg/dL (0.2-1.0); TOTAL PROTEIN 9.1 g/dL (6.4-8.2)
--- NOTE | 2021-08-17 20:12 | RAD ---
CT ABDOMEN+PELVIS WO INDICATION: LOW ABDOMEN, FLANK PAIN, MID ABD PAIN. H/O STONES EXAM: Noncontrast CT of the abdomen and pelvis. Coronal and sagittal reformatted images were perform ed. PQRS compliance statement: One or more of the following individualized dose reduction techniques were utilized for this examinat ion: 1. Automated exposure control 2. Adjustment of the mA and/or kV according to patient size 3. Use of iterative reconstruction technique COMPARISON: 01/26/2015 FINDINGS: No free air, free fluid, or fluid collection. Lower chest: The visualized lower lungs are aerated. No pleural or pericardial effusion. ABDOMEN: Liver: The noncontrast liver is homogeneous in attenuation. Gallbladder and biliary: Cholecystectomy. Normal caliber bile ducts. Spleen: Normal spleen. Pancreas: The noncontrast pancreas is homogeneous in attenuation without peripancreatic inflammatory changes. Adrenal glands: Normal adrenal glands. Kidneys and ureters: Bilateral nonobstructive renal calculi. No hydronephrosis. Right renal cortical defects, likely sequela of prior infection or old infarcts. GI tract: The stomach is decompressed and poorly evaluated. Normal caliber small bowel and colon. Nor mal appendix. Vascular structures: Normal caliber abdominal aorta. Lymph nodes: No lymphadenopathy in the abdomen or pelvis. PELVIS: Genitourinary system: Urinary bladder is decompressed. Uterus is present. SKELETAL STRUCTURES AND SOFT TISSUES: No fracture or destructive lesion in the visualized skeleton. IMPRESSION: Bilateral nonobstructive renal calculi. No hydronephrosis. Electronically signed by: Jonas Mercado MD (08/17/2021 8:10 PM) [facility]
[2021-08-17 20:27] LABS: BARBITURATES NEG (NEG); BENZODIAZEPINES NEG (NEG); CANNABINOIDS NEG (NEG); COCAINE NEG (NEG); METHADONE NEG (NEG); OPIATES POS (NEG); PHENCYCLIDINE NEG (NEG)
[2021-08-17 20:28] LABS: AMPHETAMINE/METHAMPHETAMINE NEG (NEG)
[2021-08-17 20:29] LABS: BACTERIA,URINE 0 /HPF (0-FEW); RBC,URINE 0 /HPF (0-2); WBC,URINE 0 /HPF (0-4)
[2021-08-17 20:33] LABS: PLT ESTIMATE ADEQUATE (ADEQUATE)
[2021-08-17 20:34] LABS: ANISOCYTOSIS MOD; HYPOCHROMIA MOD; MICROCYTOSIS MARKED
[2021-08-17] MEDS ORDERED: POTASSIUM CHLORIDE 20 MEQ TABLET.ER. PO ONE (21:15)
[2021-08-17] MEDS ORDERED: HYDROmorphone 2 MG/ML INJ. IVP ONE (21:15)
[2021-08-17] MEDS ORDERED: HYDR-2761 PO (21:59)
[2021-08-17] MEDS ORDERED: ONDA4TAB12 PO (21:59)
== END 2021-08-17 22:40 | disposition home or self-care (01) ==
LOC: ER 17:53
DX: R10.84 Generalized abdominal pain (principal); R11.0 Nausea; Z91.041 Radiographic dye allergy status; Z88.2 Allergy status to sulfonamides; Z90.49 Acquired absence of other specified parts of digestive tract; Z87.442 Personal history of urinary calculi
CPT/HCPCS: 36415; 74176; 80053; 80307; 81001; 83690; 83735; 85025; 96374; 96375; 99285; G0480; J1170; J2270; J2405